=== PATIENT | female | born 1945 | race Caucasian/White ===

== ENCOUNTER → 2021-09-18 | Outpatient (CLI) | payer MEDICARE, OTHER ==
[~2021-09-18] MED LIST: ASPI325 PO; Excedrin Extra1 EACH PO; Flomax0.4 MG PO; HYDMOR2 PO; HYDR1TAB94 PO; IBUP800 PO; NITR100CA PO; ONDA8 PO; PANT40 PO; Percocet 5-3251 EACH PO; Zofran Odt4 MG SL
== END | disposition home or self-care (01) ==
LOC: LAB SHORT 17:51
DX: N64.52 Nipple discharge (principal)
CPT/HCPCS: 87070; 87205

== ENCOUNTER 2023-12-19 10:14 | Day surgery (SDC) | payer MEDICARE, OTHER ==
[~2023-12-19] VITALS: Ht 172.7 cm; Wt 64.9 kg
[~2023-12-19 10:14] MED LIST changes: +IBUP200
--- NOTE | 2023-12-19 10:53 | NUR ---
12/19/23 1053 Amber Jennings PROPARACAINE PLACED IN RIGHT EYE AT 1047. PLEDGET PLACED IN RIGHT EYE AT 1048. PT TOLERATED WELL.
[2023-12-19 11:51] VITALS: BP 111/51
== END 2023-12-19 12:06 | disposition home or self-care (01) ==
LOC: ORSCSDS 10:14
PROVIDERS: Ophthalmology
PROC: 08RJ3JZ Replacement of Right Lens with Synthetic Substitute, Percutaneous Approach (ICD-10-PCS; principal; 2023-12-19 11:30)
DX: H25.13 Age-related nuclear cataract, bilateral (principal)
CPT/HCPCS: J2250; J3010; J7040; V2632

== ENCOUNTER 2024-12-23 19:12 | Emergency (ER) | payer MEDICARE, OTHER ==
[~2024-12-23] VITALS: Ht 172.7 cm; Wt 63.5 kg
[2024-12-23] MEDS ORDERED: Labetalol HCL 5 MG/ML 4ML Injection (Single Dose) IV ONE (20:55)
[2024-12-23 21:06] LABS: BASOPHILS ABSOLUTE AUTO 0.05 K/mm3 (0.00-0.23); BASOPHILS PERCENT AUTO 0 % (0-2); EOSINOPHILS ABSOLUTE AUTO 0.04 K/mm3 (0.00-0.68); EOSINOPHILS PERCENT AUTO 0 % (0-6); IMMATURE GRAN ABSOLUTE AUTO 0.09 K/mm3 (0.00-0.10); IMMATURE GRAN PERCENT AUTO 1 % (0-1); LYMPHOCYTES ABSOLUTE AUTO 1.81 K/mm3 (0.84-5.20); LYMPHOCYTES PERCENT AUTO 11 % (21-46); MONOCYTES ABSOLUTE AUTO 0.99 K/mm3 (0.16-1.47); MONOCYTES PERCENT AUTO 6 % (4-13); Mean Corpuscular HGB 31.7 pg (26.0-34.0); Mean Corpuscular HGB Conc 33.3 g/dL (31.5-36.5); Mean Corpuscular Volume 95 fL (80-100); Mean Platelet Volume 9.9 fL (9.1-12.4); NEUTROPHILS PERCENT AUTO 82 % (41-73); Platelet Count 200 K/mm3 (150-400); White Blood Cell Count 16.28 K/mm3 (4.00-11.30)
[2024-12-23 21:21] LABS: International Normalized Ratio 0.95; Prothrombin Time Results 10.2 Sec (9.7-11.5)
[2024-12-23 21:28] LABS: Albumin, Blood 3.9 g/dL (3.4-5.0); Albumin/Globulin Ratio 1.1 (0.8-1.8); Bilirubin, Total 0.4 mg/dL (0.1-1.0); Calcium, Blood 9.4 mg/dL (8.5-10.1); Creatinine, Blood 0.56 mg/dL (0.40-1.00); Globulin, Blood 3.4 g/dL (2.2-4.0); Potassium, Blood 3.9 mmol/L (3.5-5.5); Total Protein, Blood 7.3 g/dL (6.4-8.2)
[2024-12-23] MEDS ORDERED: Acetaminophen 500 MG Tab PO ONE (22:45)
[2024-12-24 00:30] VITALS: BP 134/63
== END 2024-12-24 00:43 | disposition home or self-care (01) ==
LOC: ER 19:12
PROVIDERS: Student in an Organized Health Care Education/Training Program
DX: S93.601A Unspecified sprain of right foot, initial encounter (principal); S00.83XA Contusion of other part of head, initial encounter; W18.30XA Fall on same level, unspecified, initial encounter; M25.512 Pain in left shoulder; Z88.5 Allergy status to narcotic agent
CPT/HCPCS: 70450; 73030; 73630; 80053; 85025; 85610; 85730; 96374; 99284-25; A9270

== ENCOUNTER 2025-02-25 11:22 | Emergency (ER) | payer MEDICARE, OTHER ==
[~2025-02-25] VITALS: Ht 172.7 cm; Wt 63.5 kg
[2025-02-25 11:43] VITALS: BP 173/107
== END 2025-02-25 11:49 | disposition home or self-care (01) ==
LOC: ER 11:22
DX: S32.010D Wedge compression fracture of first lumbar vertebra, subsequent encounter for fracture with routine healing (principal); Z88.5 Allergy status to narcotic agent; W18.30XD Fall on same level, unspecified, subsequent encounter
CPT/HCPCS: 99283